=== PATIENT | female | born 1995 | race Caucasian/White ===

== ENCOUNTER 2021-08-09 15:47 | Inpatient (IN) | payer OTHER, SELFPAY ==
[2021-08-09] VITALS (13 sets, daily range): BP systolic 91–126; BP diastolic 46–81; PULSE 65–99; TEMP 36.6; BMI 34.5
[2021-08-09 16:30] LABS: Glucose Point of Care 107 mg/dl (65-105)
[2021-08-09 16:37] LABS: Basophils Percent Auto 0.4 % (0.2-1.2); Eosinophils Absolute Auto 0.1 K/mm3 (0-0.3); Eosinophils Percent Auto 0.6 % (0-4.4); Hemoglobin 13.1 g/dL (12.0-15.0); Immature Granulocyte Absolute 0.11 K/mm3 (0.00-0.031); Immature Granulocyte Percent A 1.1 % (0-0.5); Lymphocytes Absolute Auto 1.69 K/mm3 (0.9-3.2); Mean Corpuscular HGB Conc 33.6 g/dl (32-36); Mean Corpuscular Hemoglobin 31.2 pg (26-34); Mean Corpuscular Volume 92.9 fl (80-100); Monocytes Absolute Auto 0.6 K/mm3 (0.1-0.6); Monocytes Percent Auto 6.2 % (2.6-8.5); Neutrophils Absolute Auto 7.5 K/mm3 (1.3-6.7); Neutrophils Percent Auto 74.7 % (45.5-73.1); Platelet Count Result 236 k/mm3 (150-375)
--- NOTE | 2021-08-09 16:39 | LDADM ---
This patient, Danni Tran, was admitted to Labor/Delivery/Recovery 104 on 08/09/21 at 15:47. Plans for labor, pain management and were discussed with patient. Patient/family oriented to hospital policies and general routines including ID bracelet, bed and alarms, visiting hours, pain management, procedures, bathroom and other care routines, personal items, smoking policy, room service/diet and guest tray routines, infant security routines, and visiting hours. Patient/Family are encouraged to report perceived risks to care and to ask questions if they do not understand what they are told or what they should do. See OBIX for further documentation.
[2021-08-09] MEDS: DINOPROSTONE 10 MG VAG INSERT VAGINAL (16:47)
[2021-08-09 17:36] LABS: HIV 1/2 Ab P24 Ag Result Negative (Negative)
--- NOTE | 2021-08-09 17:48 | PC.NURSE ---
SPoke with Dr. painter, GBS negative per patient, will go to office and print out lab tomm morning. Orders to continue NPH 16 units at bedtime and metformin. BS q4 hours throughout night
--- NOTE | 2021-08-09 19:12 | WPDANESEPP ---
Anes - Eval Pre Procedure Procedure: labor epidural Date/Time: 08/09/21 19:12 Surgeon: inocencio Pre Op Diagnosis: IOL Patient Data Age: 26 Gender: F Height: 1.55 m Weight: 83 kg Last Vital Signs Temp 36.6 C 08/09/21 17:00 Pulse 76 08/09/21 19:01 BP 103/65 08/09/21 19:01 Allergies Allergy/AdvReac Type Severity Reaction Status Date / Time No Known Allergies Allergy Verified 07/26/21 14:33 Home Medications Medication Instructions Recorded Confirmed Type PNV cmb#95-ferrous fumarate-FA 1 tablet PO DAILY 07/26/21 08/09/21 History [] aspirin 81 mg PO DAILY 07/26/21 08/09/21 History ergocalciferol (vitamin D2) See Rx Instructions .ROUTE .COMPLEX 07/26/21 08/09/21 History [Vitamin D2] ferrous sulfate [Iron (ferrous 325 mg PO DAILY 07/26/21 08/09/21 History sulfate)] insulin NPH isoph U-100 human 16 unit SUBCUT HS 07/26/21 08/09/21 History [Humulin N NPH Insulin KwikPen] levothyroxine 25 mcg PO DAILY 07/26/21 08/09/21 History metformin 500 mg PO BID 07/26/21 08/09/21 History omeprazole 40 mg PO DAILY 07/26/21 08/09/21 History Laboratory Tests 08/09/21 08/09/21 08/09/21 16:16 16:18 16:18 WBC 10.0 K/mm3 K/mm3 (4.5-10.0) RBC 4.20 M/mm3 M/mm3 (4.2-5.4) Hgb 13.1 g/dL g/dL (12.0-15.0) Hct 39.0 % % (37.0-47.0) MCV 92.9 fl fl (80-100) MCH 31.2 pg pg (26-34) MCHC 33.6 g/dl g/dl (32-36) RDW 14.0 % % (11.5-14.5) Plt Count 236 k/mm3 k/mm3 (150-375) MPV 11.0 fl H fl (7.4-10.4) Immature Gran % (Auto) 1.1 % H % (0-0.5) Neut % (Auto) 74.7 % H % (45.5-73.1) Lymph % (Auto) 17.0 % L % (18.3-44.2) [place] % (Auto) 6.2 % % (2.6-8.5) Eos % (Auto) 0.6 % % (0-4.4) Baso % (Auto) 0.4 % % (0.2-1.2) Lymph # (Auto) 1.69 K/mm3 K/mm3 (0.9-3.2) [place] # (Auto) 0.6 K/mm3 K/mm3 (0.1-0.6) Eos # (Auto) 0.1 K/mm3 K/mm3 (0-0.3) Baso # (Auto) 0.0 K/mm3 K/mm3 (0.0-0.1) Abs Immat Gran (auto) 0.11 K/mm3 H K/mm3 (0.00-0.031) Absolute Neuts (auto) 7.5 K/mm3 H K/mm3 (1.3-6.7) Absolute Nucleated RBC 0.0 K/mm3 K/mm3 (0.0-0.012) Nucleated RBC % 0.0 % % (0.0-0.2) POC Capillary Glucose 107 mg/dl H mg/dl (65-105) RPR Pending HIV 1&2 Ab/P24 Ag 4thGn Blood Type Antibody Screen 08/09/21 08/09/21 16:18 16:18 WBC RBC Hgb Hct MCV MCH MCHC RDW Plt Count MPV Immature Gran % (Auto) Neut % (Auto) Lymph % (Auto) [place] % (Auto) Eos % (Auto) Baso % (Auto) Lymph # (Auto) [place] # (Auto) Eos # (Auto) Baso # (Auto) Abs Immat Gran (auto) Absolute Neuts (auto) Absolute Nucleated RBC Nucleated RBC % POC Capillary Glucose RPR HIV 1&2 Ab/P24 Ag 4thGn Negative (Negative) Blood Type A Positive Antibody Screen Negative Patient hx anesthesia problems: none Family hx anesthesia problems: none Results Review: All pre-operative results and documents have been reviewed as part of the pre-operative evaluation. [facility] Family History Family History (Updated 07/26/21 @ 14:36 by Butch Dawson RN) Mother Hypertension Hypothyroidism Sibling Hyperthyroidism Social History Social History Smoking status: Never smoker Substance use: never Spiritual care concerns: No Exam Day of Procedure 08/09/21 19:12
[2021-08-09] MEDS: INSULIN HUMAN NPH (*BKC) 100 UNITS/ML 16 UNITS SUB-Q (20:30)
[2021-08-10] VITALS (116 sets, daily range): BP systolic 51–169; BP diastolic 25–149; PULSE 25–167; RESP 18; TEMP 36.2–37.2; O2SAT 83–100
[2021-08-10] MEDS: LACTATED RINGERS 1,000 ML 125 ML IV CONT ×4 (06:06→23:47)
[2021-08-10] MEDS: OXYTOCIN 30 UNITS/NS 500 ML 30 UNITS/500 ML BAG IV CONT (06:06)
[2021-08-10] MEDS: fentaNYL CITRATE INJ (*CRX) 100 MCG/2 ML VIAL 50 MCG IV PUSH ×2 (06:42→07:38)
[2021-08-10] MEDS: LEVOTHYROXINE SODIUM 25 MCG TABLET PO (06:43)
[2021-08-10] MEDS: fentaNYL CITRATE INJ (*CRX) 100 MCG/2 ML VIAL IV PUSH (09:41)
--- NOTE | 2021-08-10 09:51 | WPDOBADMIT ---
Obstetrics - Admit Note Admission Note: record reviewed. No pertinent additions to the history and/or any subsequent changes in the physical findings that are not consistent with the expected course of the were found. Additions to the history and/or subsequent changes in the physical findings follow. Here at 39 wks for MIL for DM. Cervadil last pm now Pitocin. cervix 1-2/70/-2 AROM with copious clear fluid. FHTs reactive
[2021-08-10] MEDS: metFORMIN HCL 500 MG TABLET PO (11:59)
[2021-08-10] MEDS: ONDANSETRON INJ 4 MG/2 ML VIAL IV PUSH (18:16)
[2021-08-10] MEDS: PHENYLEPHRINE 1,000 MCG/10 ML SYRINGE 100 MCG IV PUSH ×2 (23:26→23:41)
[2021-08-11] VITALS (34 sets, daily range): BP systolic 86–149; BP diastolic 43–93; PULSE 66–148; RESP 16; TEMP 36.6–36.8; O2SAT 97–100
[2021-08-11] MEDS: LACTATED RINGERS 1,000 ML 125 ML IV CONT (01:47)
[2021-08-11] MEDS: ONDANSETRON INJ 4 MG/2 ML VIAL IV PUSH (01:48)
--- NOTE | 2021-08-11 03:29 | P.PCNOB_ITS ---
OB - Delivery Note Procedure Delivery date: 08/11/21 Procedure: Events: Diabetes Mellitus (class B) Induction method: AROM, Per Pitocin Protocol and Per Cervidil Protocol Delivery monitor: External FHT and Internal Uterine Route of delivery: Laceration Description: Perineal - 2nd Degree Delivery repair: vicryl (3-0) Specimen: Yes (placenta) Quantitative Blood Loss (ml): 150 Anesthesia type: Epidural Disposition: floor Narrative: On my arrival, vertex at the hymen and informed of tachycardia starting after vomiting episode just prior to my arrival. Variable decels with contractions. [place] Baby Date of : 08/11/21 Weeks of gestation at delivery: 39 Infant gender: Male presentation: vertex position: Right Occiput Anterior Placenta delivery description: Spontaneous Cord Vessel Description: 3 Vessels and Nuchal Cord Narrative: Video Tape Transferrer and RN working on infant with chest compressions and PPV.
[2021-08-11] MEDS: OXYTOCIN 30 UNITS/NS 500 ML 30 UNITS/500 ML BAG 125 UNITS IV CONT (03:31)
--- NOTE | 2021-08-11 03:33 | PM.OBDSVD ---
DS: Admitting Diagnosis Discharge Date 08/11/21 Admitting Diagnosis DM-B IUP 39 wks DS: Discharge Diagnosis Discharge Diagnosis (1) (normal spontaneous vaginal delivery): Code(s): O80 - Encounter for full-term uncomplicated delivery Status: Acute (2) Diabetes in : Code(s): O24.919 - Unspecified diabetes mellitus in , unspecified trimester Status: Acute OB - DS: Summary OB Procedures : NST and Ultrasound OB Procedures Intrapartum: Spontaneous Vag Delivery OB Procedures: : None Peripartum Data Infant Delivery Method: Natural Vaginal Laceration Description: Perineal - 2nd Degree complications: none Status at Discharge Functional status at discharge: independent ambulation Overall status at discharge: patient is progressing back to baseline Time Spent with Patient Time attestation: Total time spent providing and/or coordinating discharge services: Discharge Plan Discharge Attending physician on discharge: Nuvia Vila Discharging Clinician: Nuvia Vila Anticipated Discharge Date/Time: 08/11/21 10:41 Patient Disposition: Home, Self-Care Activity: may shower and pelvic rest Diet: diabetic Patient Instructions: Antibiotic Form Stand Alone Forms: General Discharge Information Follow-up/Referrals: Nuvia Vila MD [Physician] - 6 Weeks Discharge Medications: Continued metformin 500 mg Tablet 500 mg PO BID RF: 0 levothyroxine 25 mcg Tablet 25 mcg PO DAILY RF: 0 omeprazole 40 mg Capsule,Delayed Release(Dr/Ec) 40 mg PO DAILY RF: 0 ergocalciferol (vitamin D2) [Vitamin D2] 1,250 mcg (50,000 unit) Capsule See Rx Instructions .ROUTE .COMPLEX RF: 0 Discontinued ferrous sulfate [Iron (ferrous sulfate)] 325 mg (65 mg iron) Tablet 325 mg PO DAILY RF: 0 aspirin 81 mg Tablet 81 mg PO DAILY RF: 0 Humulin N NPH Insulin KwikPen 100 unit/mL (3 mL) Insulin Pen 16 unit SUBCUT HS RF: 0 PNV cmb#95-ferrous fumarate-FA [] 28 mg iron- 800 mcg Tablet 1 tablet PO DAILY RF: 0 Date of admission: 08/09/21 15:47 Primary Care Provider: UNKNOWN,DOCTOR Admitting Provider: Nuvia Vila Attending physician on admission: Nuvia Vila Condition: Stable Health Concerns: Reviewed depression can arise in setting of severe grief. Patient voices understanding and agrees to call the office if needed.
[2021-08-11] MEDS: IBUPROFEN 600 MG TABLET (04:30)
--- NOTE | 2021-08-11 06:30 | PC.NURSE ---
Psychology Professor notified of .
[2021-08-11 07:15] LABS: Glucose Point of Care 85 mg/dl (65-105)
[2021-08-11] MEDS: BENZOCAINE 20% AER SPR (*SP) 56 GM CAN 1 SPRAY TOPICAL (07:39)
[2021-08-11] MEDS: WITCH HAZEL 40 PADS 1 PAD TOPICAL (07:42)
--- NOTE | 2021-08-11 07:49 | PC.NURSE ---
Osvaldo at [facility] notified of . Case [id number].
[2021-08-11 08:03] LABS: Rapid Plasma Reagin Non-Reactive (NonReactive)
[2021-08-11] MEDS: LEVOTHYROXINE SODIUM 25 MCG TABLET PO (08:14)
[2021-08-11] MEDS: metFORMIN HCL 500 MG TABLET PO (08:39)
--- NOTE | 2021-08-11 10:15 | PC.NURSE ---
Dr. Vila at patient bedside. Plan of care discussed with patient. Patient agrees to have autopsy performed. Patient declines cytogenetic studies. Baby will have memorial service following Autopsy. Discharge instructions given for patient.
--- NOTE | 2021-08-11 10:34 | PM.OBPNVD ---
OB - PN: Subj Subjective Date/time seen: 08/11/21 10:34 Patient comments: other (grief appropriate) OB - PN: Obj Data Labs CBC & Chem 7: 08/09/21 16:18 Labs: Laboratory Results - last 24 hr 08/09/21 08/11/21 16:18 07:13 POC Capillary Glucose 85 RPR Non-reactive OB - PN A/P Plan day: 0 Plan: discharge home Comments: - plans autopsy grief appropriate and wants to be discharged Time Spent With Patient Time: Total time spent is greater than 50% in coordination of care (as documented) at patient's floor/unit and/or counseling patient: Exam : Bimanual exam- vagina & uterus: other (Uterus firm, nt @U)
--- NOTE | 2021-08-11 10:50 | PC.NURSE ---
[place] at bedside. Grief and stages of grief discussed with patient. SHARE program and information reviewed. [employer] was performed.
--- NOTE | 2021-08-11 16:48 | PM.OP ---
Procedure Note - Brief Procedure Note - Brief Date of procedure: 08/11/21 Pre-op diagnosis: IOL Surgeon: Lashon Willoughby CRNA on 08/11 at 03:45 I was called to L&D room to confirm ETT placement by retail coordinator after approximately 40 minutes of unsuccessful resuscitation. I confirmed placement of 3.0 ETT through the vocal cords. patient's condition was unchanged.
[2021-08-13 11:18] LABS: Anti Cardio Antibody IgM <2.0 MPL-U/mL (<20.0); Anti Cardiolipin Antibody IgA <2.0 APL-U/mL (<20.0); Anti Cardiolipin Antibody IgG <2.0 GPL-U/mL (<20.0)
[2021-08-13 17:48] LABS: CMV IgG Antibody <0.60 U/mL (<0.60); CMV IgM Antibody <30.00 AU/mL (<30.00)
[2021-08-13 20:50] LABS: Lupus dRVVT 1:1 Mix Interpreta Not Indicated; Lupus dRVVT Screen 32 sec (<=45); PTT-LA Screen 34 sec (<=40)
== END 2021-08-11 12:21 | disposition home or self-care (01) | DRG 807 ==
PROVIDERS: Admitting Provider Obstetrics & Gynecology Gynecology; Visit Provider Obstetrics & Gynecology Gynecology
DX: O24.429 Gestational diabetes mellitus in childbirth, unspecified control (principal); Z37.0 Single live birth; Z3A.39 39 weeks gestation of pregnancy; O70.1 Second degree perineal laceration during delivery; O76 Abnormality in fetal heart rate and rhythm complicating labor and delivery; O21.2 Late vomiting of pregnancy; O69.81X0 Labor and delivery complicated by cord around neck, without compression, not applicable or unspecified; O99.284 Endocrine, nutritional and metabolic diseases complicating childbirth; E03.9 Hypothyroidism, unspecified
CPT/HCPCS: 36415; 82948; 84439; 84443; 85025; 85460; 85613; 85730; 86146; 86147; 86592; 86644; 86645; 86703; 86850; 86900; 86901; 88307; 88313; A9270; G0432; J1815; J2370; J2405; J2590; J2795; J3010; J7120